=== PATIENT | male | born 1995 | race Two or more races ===

== ENCOUNTER 2017-12-21 12:05 | Outpatient (CLI) | payer OTHER ==
--- NOTE | 2017-12-21 17:48 | MRI Report ---
EXAM: RIGHT ANKLE/HINDFOOT MRI WITHOUT CONTRAST EXAM DATE: 12/21/2017 01:05 PM. CLINICAL HISTORY: Pain in the right ankle and foot. COMPARISON: None. TECHNIQUE: Multiplanar, multisequence T1-weighted and fluid-sensitive sequences of the ankle/hindfoot without contrast. Other: None. FINDINGS: Bones: No fractures or subluxations. No marrow edema. No bone lesions. Articular Cartilage: Unremarkable. Ligaments: The anterior and posterior tibiofibular ligaments are intact. The anterior talofibular lig ament terminates in an ossicle or focus of heterotopic ossification on the fibular side. Presumably t his is from prior injury to that ligament. The posterior talofibular and calcaneofibular ligaments ar e intact. The deep and superficial deltoid ligaments are intact. Anterior Tendons: The tibialis anterior, extensor hallucis longus, and extensor digitorum longus tend ons are unremarkable. Medial Tendons: The tibialis posterior, flexor digitorum longus, and flexor hallucis longus tendons a re unremarkable. Lateral Tendons: The peroneus brevis and longus are unremarkable. Achilles Tendon: The Achilles tendon is unremarkable. Musculature: No edema or fatty atrophy. Other: No effusions. The contents of the sinus tarsi and tarsal tunnel are unremarkable. No plantar f asciitis. The subcutaneous tissues are unremarkable. IMPRESSION: 1. Evidence of old injury to the anterior talofibular ligament. [facility] MUSCULOSKELETAL RADIOLOGY SECTION Referring Provider Line: [phone] SITE ID: [id number]
== END 2017-12-21 12:06 | disposition home or self-care (01) ==
LOC: DI 12:05
PROVIDERS: ATTEND Pediatrics
DX: M25.571 Pain in right ankle and joints of right foot (principal)

== ENCOUNTER 2019-01-07 15:03 | Emergency (ER) | payer OTHER ==
[2019-01-07 15:33] LABS: BASOPHILS # (AUTO) 0.1 10^3/uL (0.0-0.1); BASOPHILS % (AUTO) 0.5 %; EOSINOPHILS # (AUTO) 0.2 10^3/uL (0.0-0.7); EOSINOPHILS % (AUTO) 1.5 %; LYMPHOCYTES # (AUTO) 2.3 10^3/uL (1.5-3.5); LYMPHOCYTES % (AUTO) 23.2 %; MEAN CORPUSCULAR HEMOGLOBIN 31.6 pg (27.0-31.0); MEAN CORPUSCULAR HGB CONC 35.5 g/dL (32.0-36.0); MEAN CORPUSCULAR VOLUME 89.1 fL (80.0-94.0); MONOCYTES # (AUTO) 0.7 10^3/uL (0.0-1.0); MONOCYTES % (AUTO) 6.5 %; NEUTROPHILS # (AUTO) 6.9 10^3/uL (1.5-6.6); NEUTROPHILS % (AUTO) 68.3 %; PLT - PLATELET COUNT 344 10^3/uL (130-450); RED BLOOD COUNT 5.04 10^6/uL (4.70-6.10); RED CELL DISTRIBUTION WIDTH 12.8 % (12.0-15.0); WHITE BLOOD COUNT 10.1 x10^3/uL (4.8-10.8)
[2019-01-07 15:43] LABS: ALBUMIN 4.7 g/dL (3.2-5.5); ALBUMIN/GLOBULIN RATIO 1.4 (1.0-2.2); BILIRUBIN,TOTAL 0.7 mg/dL (0.2-1.0); CALCIUM 9.7 mg/dL (8.5-10.3); CREATININE 0.9 mg/dL (0.6-1.2); TOTAL PROTEIN 8.1 g/dL (6.7-8.2)
[2019-01-07 15:59] LABS: INR 1.1 (0.8-1.2); PT - PROTHROMBIN TIME 12.2 secs (9.9-12.6)
[2019-01-07 16:06] LABS: PARTIAL THROMBOPLASTIN TIME 28.4 secs (24.9-33.3)
--- NOTE | 2019-01-07 17:51 | ED Physician Documentation ---
PD HPI GI BLEED - Stated complaint Stated Complaint: MALE - Chief complaint Chief Complaint: Abd Pain - History obtained from History obtained from: Patient - History of Present Illness Timing - onset: Today (This is an otherwise healthy 23-year-old gentleman who ate a lot of protein yesterday. Today his stool was hard and he had a single episode of bright red blood per rectum mostly on the toilet paper today with slight rectal pain. No abdominal pain. No history of this before.) Review of Systems Constitutional: denies: Fever, Chills Nose: denies: Rhinorrhea / runny nose, Congestion Cardiac: denies: Chest pain / pressure, Palpitations Respiratory: denies: Dyspnea, Cough PD PAST MEDICAL HISTORY - Past Medical History Past Medical History: No - Past Surgical History Past Surgical History: No - Present Medications Home Medications: Ambulatory Orders Medication Instructions Recorded Confirmed Cetirizine [ZyrTEC] 10 mg PO DAILY 01/07/19 01/07/19 - Allergies Allergies/Adverse Reactions: Allergies Allergy/AdvReac Type Severity Reaction Status Date / Time No Known Drug Allergies Allergy Verified 01/07/19 15:13 - Social History Does the pt smoke?: No Smoking Status: Never smoker Does the pt drink ETOH?: No Does the pt have substance abuse?: No - Immunizations Immunizations are current?: Yes PD ED PE NORMAL - Vitals Vital signs reviewed: Yes - General General: Alert and oriented X 3, No acute distress - Abdomen Abdomen: Soft, Non tender - Rectal Rectal: Other (Normal rectal exam without blood or obvious hemorrhoid) - Derm Derm: Normal color, Warm and dry Results - Vitals Vitals: Vital Signs - 24 hr 01/07/19 15:11 Temperature 36.6 C Heart Rate 80 Respiratory 20 Rate Blood Pressure 134/84 H O2 Saturation 98 Oxygen O2 Source Room air - Labs Labs: Laboratory Tests 01/07/19 01/07/19 01/07/19 15:21 15:21 15:21 WBC 10.1 RBC 5.04 Hgb 16.0 Hct 44.9 MCV 89.1 MCH 31.6 H MCHC 35.5 RDW 12.8 Plt Count 344 MPV 8.0 Neut # (Auto) 6.9 H Lymph # (Auto) 2.3 [place] # (Auto) 0.7 Eos # (Auto) 0.2 Baso # (Auto) 0.1 Absolute Nucleated RBC 0.00 Nucleated RBC % 0.0 PT 12.2 INR 1.1 APTT 28.4 Sodium Potassium Chloride Carbon Dioxide Anion Gap BUN Creatinine Estimated GFR (MDRD) Glucose Calcium Total Bilirubin AST ALT Alkaline Phosphatase Total Protein Albumin Globulin Albumin/Globulin Ratio Lipase Blood Type A POSITIVE Antibody Screen NEGATIVE 01/07/19 15:21 WBC RBC Hgb Hct MCV MCH MCHC RDW Plt Count MPV Neut # (Auto) Lymph # (Auto) [place] # (Auto) Eos # (Auto) Baso # (Auto) Absolute Nucleated RBC Nucleated RBC % PT INR APTT Sodium 136 Potassium 3.6 Chloride 99 L Carbon Dioxide 25 Anion Gap 12.0 BUN 17 Creatinine 0.9 Estimated GFR (MDRD) 105 Glucose 92 Calcium 9.7 Total Bilirubin 0.7 AST 25 ALT 26 Alkaline Phosphatase 69 Total Protein 8.1 Albumin 4.7 Globulin 3.4 Albumin/Globulin Ratio 1.4 Lipase 33 Blood Type Antibody Screen PD MEDICAL DECISION MAKING - ED course ED course: Call your doctor to arrange a follow-up appointment, make the next available appointment. In the interim, return anytime if worse or if new symptoms develop. Departure - Departure Disposition: 01 Home, Self Care Clinical Impression: Hematochezia Condition: Good Record reviewed to determine appropriate education?: Yes Instructions: ED Hematochezia Stable Comments: As discussed, this should go away if you drink plenty water and soften your stools, potentially with some fresh fruit. Return for new or worsening symp toms. If [place] is recurrent [place]
[2019-01-07 17:52] VITALS: BP 143/85
== END 2019-01-07 17:55 | disposition home or self-care (01) ==
LOC: ED 15:03
DX: K92.1 Melena (principal)
CPT/HCPCS: 36415; 80053; 83690; 85025; 85610; 85730; 86850; 86900; 86901; 99282; 99283

== ENCOUNTER 2024-05-15 07:06 | Outpatient (CLI) | payer OTHER ==
--- NOTE | 2024-05-15 10:30 | Ultrasound Report ---
PROCEDURE: Testicle INDICATIONS: ELEVATED E2, GYNECOMASTIA TECHNIQUE: Real-time scanning was performed of the scrotum and testicles, with image documentation. Color and p ulse Doppler interrogation was performed of both testicles. COMPARISON: None. FINDINGS: Right: Testicle is normal in size at 4.1 x 2.6 x 4.1 cm, and homogenous in echotexture. Epididymis is normal in overall size and morphology. Small hydrocele. No varicoceles. Overlying scrotal skin i s normal in thickness. Left: Testicle is normal in size at 4.0 x 2.6 x 2.9 cm, and homogeneous in echotexture. Epididymis is normal in overall size and morphology. Heterogeneous bilateral epididymal echotexture is seen. No hydrocele. No varicoceles. Overlying scrotal skin is normal in thickness. Doppler: Color and pulse Doppler demonstrate normal and symmetric arterial flow in both testicles. IMPRESSION: 1. Small right-sided hydrocele. No left-sided hydrocele. 2. Normal-appearing bilateral testes. No testicular torsion. 3. Nonspecific mildly heterogeneous echotexture in bilateral epididymides. No discrete epididymal les ion. Normal vascularity is seen in bilateral epididymides. Reviewed by: Travis Rubin MD on 05/15/2024 10:29 AM PDT Approved by: Travis Rubin MD on 05/15/2024 10:29 AM PDT Station ID: [id number]
== END 2024-05-15 07:07 | disposition home or self-care (01) ==
LOC: DI 07:06
PROVIDERS: ATTEND Nurse Practitioner Family
DX: N62 Hypertrophy of breast (principal); N43.3 Hydrocele, unspecified